=== PATIENT | female | born 1990 | race Caucasian/White ===

== ENCOUNTER 2017-01-18 20:35 | Observation (INO) | payer OTHER ==
[~2017-01-18] VITALS: Ht 165.1 cm; Wt 88.9 kg
[~2017-01-18 20:35] MED LIST: PRENATAL VITAMI1 T10 PO
[2017-01-18 21:18] VITALS: BP 102/56
[2017-01-18] MEDS ORDERED: PNV-DHA1 SGL PO (21:23)
== END 2017-01-18 23:30 | disposition home or self-care (01) ==
LOC: MLD 20:35
PROVIDERS: ADMIT Obstetrics & Gynecology; ATTEND Obstetrics & Gynecology
DX: O26.893 Other specified pregnancy related conditions, third trimester (principal); R10.2 Pelvic and perineal pain; M54.9 Dorsalgia, unspecified; Z3A.34 34 weeks gestation of pregnancy
CPT/HCPCS: 76815; G0378; Q0092

== ENCOUNTER 2019-05-24 23:11 | Emergency (ER) | payer OTHER ==
[~2019-05-24] VITALS: Ht 165.1 cm; Wt 68.0 kg
[~2019-05-24 23:11] MED LIST changes: +PREN-385 PO; +PREN1SGL25 PO; -PRENATAL VITAMI1 T10 PO
[2019-05-24 23:14] VITALS: BP 125/90
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
--- NOTE | 2019-05-24 23:14 | NUR ---
TO BED # 11 AMBULATORY
[2019-05-25] MEDS ORDERED: LIDOCAINE 1% 500 MG/50 ML VIAL INJ SCH (00:20)
[2019-05-25] MEDS ORDERED: BACITRACIN OINT 500 UNITS/GM PKT TP ONE (00:20)
[2019-05-25] MEDS ORDERED: ACETAMINOPHEN EXTRA STRENGTH 500 MG TAB PO ONE (00:25)
[2019-05-25] MEDS ORDERED: LIDOCAINE MPF 1% - 5 mL VIAL 5 ML ONE (00:35)
--- NOTE | 2019-05-25 01:31 | NUR ---
PT STATES RELIEF OF PAIN AFTER NERVE BLOCK DONE WITH LIDOCAIN BY DR SIMMONS.
[2019-05-25] MEDS ORDERED: LORazepam 1 MG TAB PO ONE (01:55)
--- NOTE | 2019-05-25 02:02 | NUR ---
PT STATES PAIN WAS RETURNING. DR SIMMONS NOTIFIED. MEDICATED PT WITH ATIVAN PER DR ARNDT ORDERS. CONTINUE TO MONITOR.
--- NOTE | 2019-05-25 02:50 | NUR ---
FINGER SPLINT WAS PLACED ON PTS RIGHT RING FINGER WITH NORMAL PMSC
[2019-05-25 03:00] VITALS: BP 118/88
--- NOTE | 2019-05-25 03:00 | NUR ---
Patient discharged with v/s stable. Written and verbal after care instructions given and explained. Patient alert, oriented and verbalized understanding of instructions. Ambulatory with steady gait. All questions addressed prior to discharge. ID band removed. Patient advised to follow up with PMD. Rx of KEFLEX, BACITRACIN, NORCO, AND NAPROSYN given. Patient educated on indication of medication including possible reaction and side effects. Opportunity to ask questions provided and answered.
== END 2019-05-25 03:00 | disposition home or self-care (01) ==
LOC: MED 23:11
DX: S62.634A Displaced fracture of distal phalanx of right ring finger, initial encounter for closed fracture (principal); S61.214A Laceration without foreign body of right ring finger without damage to nail, initial encounter; Z98.890 Other specified postprocedural states; Z79.899 Other long term (current) drug therapy; Z23 Encounter for immunization; W19.XXXA Unspecified fall, initial encounter; Y93.89 Activity, other specified; Y92.89 Other specified places as the place of occurrence of the external cause; Y99.8 Other external cause status
CPT/HCPCS: 12001; 73140; 90471; 90715; 99284; J2001; Q0092